=== PATIENT | male | born 1945 | race Caucasian/White ===

== ENCOUNTER 2022-08-26 18:11 | Inpatient (IN) | payer MEDICARE, BC ==
[~2022-08-26] VITALS: Ht 167.6 cm; Wt 68.0 kg
--- NOTE | 2022-08-26 01:12 | NUR ---
RN NOTES PATIENT COMPLAINS OF PAIN SCALE OF 10/10. WAS GIVEN MORPHINE. WILL REASSESS.
--- NOTE | 2022-08-26 02:07 | NUR ---
RN NOTES PATIENT IS SLEEPING EASILY AWAKEN WHEN CALLED BY NAME PATIENT CLAIMS TO BE RELIEVED.
--- NOTE | 2022-08-26 18:30 | NUR ---
Patient c/c abd pain, A/O x 3
--- NOTE | 2022-08-26 18:58 | NUR ---
LAB AT BEDSIDE FOR BLOOD DRAW
[2022-08-26] MEDS ORDERED: FAMOTIDINE/PF INJ 20 MG/2 ML VIAL IV ONE ×3 (19:00→19:45)
[2022-08-26] MEDS ORDERED: ONDANSETRON HCL/PF 4 MG/2 ML VIAL IVP ONE (19:00)
[2022-08-26] MEDS ORDERED: ONDANSETRON HCL/PF 4 MG/2 ML VIAL ONE ×3 (19:00→21:15)
[2022-08-26] MEDS ORDERED: MORPHINE SULFATE INJ 2 MG/ML DISP.SYRIN IV ONE ×2 (19:00→21:00)
[2022-08-26] MEDS ORDERED: IV NS 0.9% 1,000 ML BAG IV ONE (19:00)
[2022-08-26] MEDS ORDERED: MORPHINE SULFATE INJ 2 MG/ML DISP.SYRIN ONE ×2 (19:01→19:44)
[2022-08-26 19:32] LABS: CALCIUM, SERUM 9.9 mg/dL (8.5-10.1); CARBON DIOXIDE 32 mmol/L (21-32); CHLORIDE 101 mmol/L (98-107); CREATININE 1.6 mg/dL (0.6-1.3); GLUCOSE 128 mg/dL (74-106); POTASSIUM 3.8 mmol/L (3.5-5.1); SODIUM SERUM 136 mmol/L (136-145); UREA NITROGEN, BLOOD 28 mg/dL (7-18)
[2022-08-26 19:39] LABS: ALANINE AMINOTRANSFERASE 35 U/L (12-78); ALBUMIN 4.3 g/dL (3.4-5.0); ALKALINE PHOSPHATASE 92 U/L (46-116); ASPARTATE AMINOTRANSFERASE 28 U/L (15-37); BILIRUBIN,DIRECT 0.2 mg/dL (0.0-0.2); BILIRUBIN,TOTAL 0.9 mg/dL (0.2-1.0); LIPASE 197 U/L (73-393); TOTAL PROTEIN, SERUM 7.6 g/dL (6.4-8.2)
--- NOTE | 2022-08-26 19:40 | NUR ---
RIGHT HAND #22G INSERTED
--- NOTE | 2022-08-26 20:00 | NUR ---
MORPHINE 2MG, PEPCID 20MG, ZOFRAN 4MG GIVEN
[2022-08-26 20:18] LABS: BASOPHILS % (AUTO) 0.2 % (0.0-2.0); HEMATOCRIT 47 % (39-51); HEMOGLOBIN 15.7 g/dL (13.5-17.5); LYMPHOCYTES # (AUTO) 0.8 K/uL (0.8-4.8); LYMPHOCYTES % (AUTO) 4.7 % (20.0-44.0); MEAN CORPUSCULAR HGB CONC 34 g/dl (31.0-36.0); MEAN CORPUSCULAR VOLUME 92 fL (80-96); MONOCYTES # (AUTO) 0.7 K/uL (0.1-1.30); MONOCYTES % (AUTO) 4.2 % (2.0-12.0); NEUTROPHILS # (AUTO) 14.3 K/uL (1.8-8.9); NEUTROPHILS % (AUTO) 89.9 % (43.0-81.0); PLATELET COUNT (AUTO) 200 K/uL (150-450); RED BLOOD CELL COUNT(AUTO) 5.09 MIL/uL (4.5-6.0); WHITE BLOOD COUNT (AUTO) 15.9 K/uL (4.3-11.0)
[2022-08-26] MEDS ORDERED: MORPHINE SULFATE INJ 4 MG/ML DISP.SYRIN ONE (21:05)
--- NOTE | 2022-08-26 21:10 | NUR ---
MORPHINE 4MG IV GIVEN
--- NOTE | 2022-08-26 21:20 | NUR ---
ZOFRAN 4MG IV GIVEN
[2022-08-26] MEDS ORDERED: ONDANSETRON HCL/PF 4 MG/2 ML VIAL IV ONE (21:30)
--- NOTE | 2022-08-26 21:50 | NUR ---
REPORT GIVEN TO ARIEL
--- NOTE | 2022-08-26 22:25 | NUR ---
PATIENT TRANSFER TO ROOM 324-1, IN STABLE CONDITION
[2022-08-26 22:35] VITALS: BP 120/71
--- NOTE | 2022-08-26 22:35 | NUR ---
MS RN ADMITTING NOTES RECEIVED PATIENT AWAKE, COOPERATIVE, A/OX4, PATIENT IS BREATHING EVENLY AND UNLABORED ON ROOM AIR, COMPLAINS OF PAIN IN THE ABDOMEN SCALE OF 8/10, PATIENT WAS GIVEN MORPHINE IN ER. PHYSICAL ASSESSMENT WAS DONE, PATIENT HAVE IV ACCESS ON RIGHT WRIST G#22 SALINE LOCK PATENT AND FLUSHING WELL, PATIENT WAS ORIENTED TO THE ROOM AND HOW TO USE THE CALL LIGHT, BELONGINGS ARE ACCOUNTED FOR. SAFETY MEASURES IN PLACE; BED LOCKED IN LOWEST POSITION, SIDE RAIL UP X2, CALL LIGHT AND SIDE TABLE WITHIN PATIENTS REACH
[2022-08-27] MEDS: IV NS 0.9% 1,000 ML IV PRN ×2 (00:35→21:11)
[2022-08-27] MEDS: ENOXAPARIN SODIUM 40 MG/0.4 ML DISP.SYRIN SQ SCH ×2 (00:36→21:41)
[2022-08-27] MEDS: MORPHINE SULFATE INJ 2 MG/ML DISP.SYRIN IV PRN ×5 (01:37→21:41)
[2022-08-27 06:16] LABS: BASOPHILS % (AUTO) 0.2 % (0.0-2.0); EOSINOPHILS % (AUTO) 0.8 % (0.0-6.0); HEMATOCRIT 42 % (39-51); HEMOGLOBIN 14.1 g/dL (13.5-17.5); LYMPHOCYTES # (AUTO) 0.5 K/uL (0.8-4.8); LYMPHOCYTES % (AUTO) 3.1 % (20.0-44.0); MEAN CORPUSCULAR HGB CONC 34 g/dl (31.0-36.0); MEAN CORPUSCULAR VOLUME 92 fL (80-96); MONOCYTES # (AUTO) 0.7 K/uL (0.1-1.30); NEUTROPHILS # (AUTO) 13.4 K/uL (1.8-8.9); NEUTROPHILS % (AUTO) 90.9 % (43.0-81.0); PLATELET COUNT (AUTO) 159 K/uL (150-450); RED BLOOD CELL COUNT(AUTO) 4.53 MIL/uL (4.5-6.0); WHITE BLOOD COUNT (AUTO) 14.7 K/uL (4.3-11.0)
[2022-08-27 06:27] LABS: CHOLESTEROL 98 mg/dL (<200); HDL CHOLESTEROL 53 mg/dL (40-60); LDL 41 mg/dL (0-99); TRIGLYCERIDES 57 mg/dL (30-150)
[2022-08-27 06:31] LABS: CALCIUM, SERUM 8.9 mg/dL (8.5-10.1); CARBON DIOXIDE 32 mmol/L (21-32); CHLORIDE 103 mmol/L (98-107); CREATININE 1.5 mg/dL (0.6-1.3); GLUCOSE 122 mg/dL (74-106); MAGNESIUM 2.7 mg/dL (1.8-2.4); PHOSPHORUS 3.7 mg/dL (2.5-4.9); POTASSIUM 5.2 mmol/L (3.5-5.1); SODIUM SERUM 136 mmol/L (136-145); UREA NITROGEN, BLOOD 29 mg/dL (7-18)
--- NOTE | 2022-08-27 06:43 | NUR ---
RN NOTES PATIENT COMPLAINS OF PAIN WITH A SCALE OF 10/10. PATIENT WAS GIVEN MORPHINE.
--- NOTE | 2022-08-27 06:50 | NUR ---
MS RN CLOSING NOTES PATIENT AWAKE, COOPERATIVE, A/OX4, PATIENT IS BREATHING EVENLY AND UNLABORED ON ROOM AIR, COMPLAINS OF PAIN IN THE ABDOMEN SCALE OF 4/10, PATIENT HAVE IV ACCESS ON RIGHT WRIST G#22 SALINE LOCK PATENT AND FLUSHING WELL, PAIN MEDICATIONS GIVEN ORDERED. SAFETY MEASURES IN PLACE; BED LOCKED IN LOWEST POSITION, SIDE RAIL UP X2, CALL LIGHT AND SIDE TABLE WITHIN PATIENTS REACH. WILL ENDORSE TO NEXT SHIFT FOR CONTINUITY OF CARE.
--- NOTE | 2022-08-27 07:20 | NUR ---
MS RN OPENING NOTES RECEIVED PATIENT AWAKE, COOPERATIVE, A/OX4, PATIENT IS BREATHING EVENLY AND UNLABORED ON ROOM AIR, COMPLAINS OF PAIN AND DISCOMFORT AND WAS JUST GIVEN PAIN MEDICATION OF MORPHINE , PATIENT HAVE IV ACCESS ON RIGHT WRIST G#22 SALINE LOCK PATENT AND FLUSHING WELL, PATIENT WAS ORIENTED TO THE ROOM AND HOW TO USE THE CALL LIGHT, BELONGINGS ARE ACCOUNTED FOR. SAFETY MEASURES IN PLACE; BED LOCKED IN LOWEST POSITION, SIDE RAIL UP X2, CALL LIGHT AND SIDE TABLE WITHIN PATIENTS REACH
[2022-08-27 08:00] VITALS: BP 125/73
[2022-08-27] MEDS ORDERED: PRED5DRO16 LEFTEYE (08:28)
[2022-08-27] MEDS ORDERED: CYCL5TAB PO (08:28)
[2022-08-27] MEDS ORDERED: GABA300C PO (08:28)
[2022-08-27] MEDS ORDERED: KETO5DRO39 LEFTEYE (08:28)
[2022-08-27] MEDS ORDERED: HYDR-3972 PO (08:28)
[2022-08-27] MEDS ORDERED: ATOR10TA PO (08:28)
[2022-08-27] MEDS: PANTOPRAZOLE 40 MG VIAL IV SCH (08:33)
[2022-08-27] MEDS: ONDANSETRON HCL/PF 4 MG/2 ML VIAL IVP PRN ×2 (12:23→17:13)
[2022-08-27] MEDS ORDERED: SODIUM POLYSTYRENE SULF. PWD 15 GM UDC PO ONE (15:00)
[2022-08-27 16:00] VITALS: BP 130/70
[2022-08-27] MEDS ORDERED: SODIUM POLYSTYRENE SULFONATE 15 G/60 ML BOTTLE PO ONE (17:00)
--- NOTE | 2022-08-27 19:41 | NUR ---
MS RN CLOSING NOTES PATIENT AWAKE, COOPERATIVE, A/OX4, PATIENT IS BREATHING EVENLY AND UNLABORED ON ROOM AIR, COMPLAINS OF PAIN AND DISCOMFORT AND MORPHINE GIVEN ORDERED WITH HELP TOGETHER WITH STEPHIE PATIENT C/O OF NAUSEA AND WITH HELP , ALL DUE MEDS GIVEN ORDERED, SEEN BY DR SCHMITT AND ASSESSED AND WITH ORDER TO PUT NGT , INSERTED AND WITH OUTPUT OF COFFEE GROUND EMESIS ON INTERMITTENT SUCTION ON GOING, PATIENT HAVE IV ACCESS ON RIGHT WRIST G#22 WITH NS @75 ML /H , PATIENT WAS ORIENTED TO THE ROOM AND HOW TO USE THE CALL LIGHT . SAFETY MEASURES IN PLACE; BED LOCKED IN LOWEST POSITION, SIDE RAIL UP X2, CALL LIGHT AND SIDE TABLE WITHIN PATIENTS REACH AND ENDORSED TO NEXT SHIFT
--- NOTE | 2022-08-27 19:51 | NUR ---
RN Opening Notes Received pt in bed, asleep, awakens to verbal stimuli. AOx4. ON RA and tolerating well. No SOB noted. No s/sx of respiratory distress noted. IV Access in R arm #22G running NS @ 75 ml/hr. Safety precautions in place: bed in lowest, locked position, siderails upx2, and brakes on. Table and call light within reach. All needs met at this time.
[2022-08-27 20:00] VITALS: BP 137/76
[2022-08-27] MEDS ORDERED: ONDANSETRON HCL/PF 4 MG/2 ML VIAL IVP PRN (22:30)
[2022-08-27] MEDS ORDERED: NA PHOS,M-B/NA PHOS,DI-BA 1 EA ENEMA RC PRN (23:00)
[2022-08-28] MEDS ORDERED: NA PHOS,M-B/NA PHOS,DI-BA 1 EA ENEMA RC PRN (03:30)
[2022-08-28 06:11] LABS: BASOPHILS % (AUTO) 0.1 % (0.0-2.0); EOSINOPHILS % (AUTO) 0.3 % (0.0-6.0); HEMATOCRIT 42 % (39-51); HEMOGLOBIN 13.9 g/dL (13.5-17.5); LYMPHOCYTES # (AUTO) 0.3 K/uL (0.8-4.8); LYMPHOCYTES % (AUTO) 2.4 % (20.0-44.0); MEAN CORPUSCULAR HGB CONC 33 g/dl (31.0-36.0); MEAN CORPUSCULAR VOLUME 93 fL (80-96); MONOCYTES # (AUTO) 0.9 K/uL (0.1-1.30); MONOCYTES % (AUTO) 8.1 % (2.0-12.0); NEUTROPHILS # (AUTO) 9.8 K/uL (1.8-8.9); NEUTROPHILS % (AUTO) 89.1 % (43.0-81.0); PLATELET COUNT (AUTO) 148 K/uL (150-450); RED BLOOD CELL COUNT(AUTO) 4.48 MIL/uL (4.5-6.0); WHITE BLOOD COUNT (AUTO) 11.1 K/uL (4.3-11.0)
[2022-08-28 06:23] LABS: ALANINE AMINOTRANSFERASE 36 U/L (12-78); ALBUMIN 2.8 g/dL (3.4-5.0); ALKALINE PHOSPHATASE 66 U/L (46-116); ASPARTATE AMINOTRANSFERASE 31 U/L (15-37); BILIRUBIN,TOTAL 0.9 mg/dL (0.2-1.0); CALCIUM, SERUM 8.6 mg/dL (8.5-10.1); CARBON DIOXIDE 28 mmol/L (21-32); CHLORIDE 106 mmol/L (98-107); CREATININE 1.5 mg/dL (0.6-1.3); GLUCOSE 123 mg/dL (74-106); MAGNESIUM 2.7 mg/dL (1.8-2.4); PHOSPHORUS 2.8 mg/dL (2.5-4.9); POTASSIUM 4.8 mmol/L (3.5-5.1); SODIUM SERUM 138 mmol/L (136-145); TOTAL PROTEIN, SERUM 6.1 g/dL (6.4-8.2); UREA NITROGEN, BLOOD 33 mg/dL (7-18)
--- NOTE | 2022-08-28 07:20 | NUR ---
MS RN OPENING NOTES RECEIVED PATIENT AWAKE USING BEDSIDE COMMODE , COOPERATIVE, A/OX4, ROOM AIR WITH NO SOB OR DISTRESS NOTED , NO OF PAIN AND DISCOMFORT NOTED , PATIENT HAVE IV ACCESS ON RIGHT WRIST G#22 WITH NS @75 ML /HOUR . ON NGT DRAINING WITH COFFEE GROUND EMESIS WITH 1000 CC . SAFETY MEASURES IN PLACE; BED LOCKED IN LOWEST POSITION, SIDE RAIL UP X2, CALL LIGHT AND SIDE TABLE WITHIN PATIENTS REACH
--- NOTE | 2022-08-28 07:42 | NUR ---
RN Closing Notes Pt in bed, asleep, awakens to verbal stimuli. AOx4. ON RA and tolerating well. No SOB noted. No s/sx of respiratory distress noted. IV Access in R arm #22G running NS @ 75 ml/hr. All orders carried out. All needs met. Pt kept clean and dry. Safety precautions in place: bed in lowest, locked position, siderails upx2, and brakes on. Table and call light within reach. Will endorse to oncoming shift for olaf.
[2022-08-28 08:00] VITALS: BP 132/76
[2022-08-28] MEDS: PANTOPRAZOLE 40 MG VIAL IV SCH (09:42)
--- NOTE | 2022-08-28 12:30 | NUR ---
RN NOTES RECEIVED A CALL FROM BRONSON CADET NP AND WITH ORDER TO SULO MEDROL IV FOR IODINE ALLERGY AND TO GIVE ANOTHER ONE @ 1800 OF BENADRYL AND SOLU MEDROL IV , PATIENT AGREED TO HAVE THAT MEDICATION
[2022-08-28] MEDS ORDERED: methylPREDNISolone SOD SUCC 40 MG/ML VIAL IV ONE ×2 (13:00→18:00)
[2022-08-28 16:09] LABS: BILIRUBIN,URINE NEGATIVE (NEGATIVE); COLOR,URINE YELLOW (YELLOW); LEUKOCYTE ESTERASE ,URINE NEGATIVE (NEGATIVE); NITRITE, URINE NEGATIVE (NEGATIVE); PH,URINE 5.5 (5.0-8.0); PROTEIN,URINE 1+ mg/dl (NEGATIVE); UGLUCOSE NEGATIVE (NEGATIVE); UROBILINOGEN,URINE 0.2 EU/dL (0.2)
[2022-08-28] MEDS: IV NS 0.9% 1,000 ML IV PRN (16:27)
[2022-08-28 16:30] VITALS: BP 117/70
[2022-08-28] MEDS ORDERED: DIATR MEGLU/DIATRIZOATE SODIUM 120 ML BOTTLE (GASTROGRAPHIN) ONE ×2 (17:05→18:34)
[2022-08-28 17:20] LABS: RBC,URINE 0-2 /HPF (0-2)
[2022-08-28 17:21] LABS: BACTERIA,URINE Few /HPF (None Seen); SQUAMOUS EPITHELIAL CELL,UR Few /HPF (None Seen); WBC,URINE NONE SEEN /HPF (0-3)
[2022-08-28] MEDS ORDERED: diphenhydrAMINE HCL 50 MG/ML VIAL IV ONE (18:00)
--- NOTE | 2022-08-28 19:40 | NUR ---
MS RN OPENING NOTE RECEIVED PATIENT AWAKE, WITH , AND DAUGHTER AT BED SIDE. PT A/OX4, ABLE TO VERBALIZE NEEDS. BREATHING EVEN, AND UNLABORED. IV ACCESS TO RIGHT WRIST G#22 SALINE LOCK, IV PATENT AND FLUSHING WELL. PT IS GETTING TEST DONE AT BED SIDE. SAFETY MEASURES IN PLACE; BED LOCKED IN LOWEST POSITION, SIDE RAIL UP X2, CALL LIGHT AND SIDE TABLE WITHIN REACH. WILL CONTINUE TO MONITOR PT.
--- NOTE | 2022-08-28 19:50 | NUR ---
MS RN CLOSING NOTES PATIENT IN BED AWAKE , COOPERATIVE, A/OX4, ROOM AIR WITH NO SOB OR DISTRESS NOTED , NO OF PAIN AND DISCOMFORT NOTED , PATIENT HAVE IV ACCESS ON RIGHT WRIST G#22 WITH NS @75 ML /HOUR . ON NGT DRAINING WITH COFFEE GROUND EMESIS . ALL DUE MEDS GIVEN ORDERED , ABLE TO DO BOWEL MOVEMENT X 1 AND URINALYSIS COLLECTED AND PENDING RESULT , SAFETY MEASURES IN PLACE; BED LOCKED IN LOWEST POSITION, SIDE RAIL UP X2, SMALL BOWEL THRU DONE @ 1900 , ENDORSED TO NEXT SHIFT
[2022-08-28 20:00] VITALS: BP 138/77
--- NOTE | 2022-08-28 22:00 | NUR ---
MS RN NOTE PT HAD SMALL BOWEL SERIAL X-RAYS.
[2022-08-28] MEDS: ENOXAPARIN SODIUM 40 MG/0.4 ML DISP.SYRIN SQ SCH (22:22)
[2022-08-29 06:29] LABS: HEMATOCRIT 35 % (39-51); HEMOGLOBIN 11.9 g/dL (13.5-17.5); LYMPHOCYTES # (AUTO) 0.3 K/uL (0.8-4.8); LYMPHOCYTES % (AUTO) 3.5 % (20.0-44.0); MEAN CORPUSCULAR HGB CONC 34 g/dl (31.0-36.0); MEAN CORPUSCULAR VOLUME 93 fL (80-96); MONOCYTES # (AUTO) 0.9 K/uL (0.1-1.30); MONOCYTES % (AUTO) 9.7 % (2.0-12.0); NEUTROPHILS # (AUTO) 7.9 K/uL (1.8-8.9); NEUTROPHILS % (AUTO) 86.8 % (43.0-81.0); PLATELET COUNT (AUTO) 138 K/uL (150-450); RED BLOOD CELL COUNT(AUTO) 3.75 MIL/uL (4.5-6.0); WHITE BLOOD COUNT (AUTO) 9.1 K/uL (4.3-11.0)
[2022-08-29 06:55] LABS: CALCIUM, SERUM 8.7 mg/dL (8.5-10.1); CARBON DIOXIDE 30 mmol/L (21-32); CHLORIDE 110 mmol/L (98-107); CREATININE 1.4 mg/dL (0.6-1.3); GLUCOSE 124 mg/dL (74-106); MAGNESIUM 2.5 mg/dL (1.8-2.4); PHOSPHORUS 2.5 mg/dL (2.5-4.9); POTASSIUM 4.7 mmol/L (3.5-5.1); SODIUM SERUM 143 mmol/L (136-145); UREA NITROGEN, BLOOD 41 mg/dL (7-18)
--- NOTE | 2022-08-29 06:58 | NUR ---
MS RN OPENING NOTE LEFT PATIENT IN BED, AWAKE. PT A/OX4, ABLE TO VERBALIZE NEEDS. BREATHING EVEN, AND UNLABORED. IV ACCESS TO RIGHT WRIST G#22 SALINE LOCK, IV PATENT AND FLUSHING WELL. PT IS REFUSING IV FLUID. HE STATES THAT HE WOULD LIKE TO TALK TO MD REGARDING REMOVAL OF NG TUBE.. PT HAD SMALL BOWEL SERIAL X-RAYS. SAFETY MEASURES IN PLACE; BED LOCKED IN LOWEST POSITION, SIDE RAIL UP X2, CALL LIGHT AND SIDE TABLE WITHIN REACH. WILL ENDORSE PT TO MORNING SHIFT NURSE FOR SHON.
--- NOTE | 2022-08-29 07:07 | NUR ---
MS RN OPENING NOTES RECEIVED PATIENT AWAKE IN BED, A/Ox4 ABLE TO MAKE NEEDS KNOWN. ON ROOM AIR, NO S/S OF RESPIRATORY DISTRESS. IV ACCESS R ARM #22G, PATIENT CURRENTLY REFUSING IV FLUIDS. INTACT AND PATENT. PATIENT HAS NG-TUBE, CURRENTLY LOCKED, PENDING MD ORDER TO CONTINUE SUCTIONING. NO C/O OF PAIN OR DISCOMFORT. PATIENT AMBULATORY, HAS BATHROOM PRIVILEGE. SKIN INTACT. SAFETY MEASURES IN PLACE: BED LOCKED AND IN LOWEST POSITION, HOB ELEVATED, CALL LIGHT WITHIN REACH, SIDE RAILS UPx2. WILL CONTINUE TO MONITOR.
[2022-08-29 08:00] VITALS: BP 143/81
[2022-08-29] MEDS ORDERED: IV D5/0.45 NACL 1,000 ML IV PRN (09:00)
[2022-08-29] MEDS: PANTOPRAZOLE 40 MG VIAL IV SCH (09:00)
--- NOTE | 2022-08-29 09:39 | NUR ---
RN NOTES PATIENT REFUSED MORNING MEDICATION, SAYING HE DOESN'T NEED IT. WISHES TO HAVE NG-TUBE REMOVED AND TALK TO THE DOCTOR. WILL CONTINUE TO MONITOR AND EDUCATE NEEDED
--- NOTE | 2022-08-29 12:51 | NUR ---
RN NOTES REMOVED NGT, PATIENT TOLERATED WELL. ORDERED CLEAR LIQUID DIET, PATIENT EATING, FAMILY AT BEDSIDE. WILL CONTINUE TO MONITOR.
[2022-08-29 16:00] VITALS: BP 146/80
--- NOTE | 2022-08-29 18:41 | NUR ---
MS RN CLOSING NOTES PATIENT AWAKE IN BED, A/Ox4 ABLE TO MAKE NEEDS KNOWN. STABLE ON ROOM AIR, NO S/S OF RESPIRATORY DISTRESS. IV ACCESS R ARM #22G, PATIENT CURRENTLY REFUSING IV FLUIDS. INTACT AND PATENT. NO C/O OF PAIN OR DISCOMFORT. PATIENT AMBULATORY, HAS BATHROOM PRIVILEGE. SKIN INTACT. SAFETY MEASURES MAINTAINED: BED LOCKED AND IN LOWEST POSITION, HOB ELEVATED, CALL LIGHT WITHIN REACH, SIDE RAILS UPx2. WILL ENDORSE TO NEXT SHIFT ANY SHON.
--- NOTE | 2022-08-29 19:49 | NUR ---
MS RN OPENING NOTES: RECEIVED PATIENT AWAKE IN BED, BE DIN LOW POSITION CALL LIGHTS WITHIN REACH, NO COMPLAIN OF PAIN AND DISCOMFORT AT THIS TIME, ON ROOM AIR SATURATING WELL, NO SOB WAS OBSERVED, PATIENT IS A/OX4 ABLE TO MAKE NEEDS KNOWN, AMBULATORY, REMIND TO USE THE CALL LIGHTS WHEN NEEDED ASSISTANCE, IV LINE AT RIGHT ARM #22 WITH D5 1/2 NSS@100ML/HR INFUSING WELL, PATIENT KEPT CLEAN AND DRY ALL NEEDS MET WILL CONTINUE TO MONITOR.
[2022-08-29 20:00] VITALS: BP 136/81
[2022-08-29] MEDS: ACETAMINOPHEN 325 MG TABLET PO PRN (21:16)
[2022-08-29] MEDS: ENOXAPARIN SODIUM 40 MG/0.4 ML DISP.SYRIN SQ SCH (22:00)
--- NOTE | 2022-08-29 22:24 | NUR ---
RN NOTES: PATIENT REFUSED LOVENOX 40 MG HS , EXPLAIN PURPOSE, RISK AND BENEFITS PER PATIENT SAID " I THINK IM GONNA PASS IT FOR NOW".
[2022-08-30 05:55] LABS: BASOPHILS % (AUTO) 0.1 % (0.0-2.0); EOSINOPHILS % (AUTO) 3.3 % (0.0-6.0); HEMATOCRIT 33 % (39-51); HEMOGLOBIN 11.3 g/dL (13.5-17.5); LYMPHOCYTES # (AUTO) 0.9 K/uL (0.8-4.8); LYMPHOCYTES % (AUTO) 11.3 % (20.0-44.0); MEAN CORPUSCULAR HGB CONC 34 g/dl (31.0-36.0); MEAN CORPUSCULAR VOLUME 92 fL (80-96); MONOCYTES # (AUTO) 0.8 K/uL (0.1-1.30); MONOCYTES % (AUTO) 10.8 % (2.0-12.0); NEUTROPHILS # (AUTO) 5.7 K/uL (1.8-8.9); NEUTROPHILS % (AUTO) 74.5 % (43.0-81.0); PLATELET COUNT (AUTO) 130 K/uL (150-450); WHITE BLOOD COUNT (AUTO) 7.7 K/uL (4.3-11.0)
[2022-08-30 06:04] LABS: CALCIUM, SERUM 8.5 mg/dL (8.5-10.1); CARBON DIOXIDE 31 mmol/L (21-32); CHLORIDE 107 mmol/L (98-107); CREATININE 1.4 mg/dL (0.6-1.3); GLUCOSE 94 mg/dL (74-106); MAGNESIUM 2.1 mg/dL (1.8-2.4); PHOSPHORUS 3.2 mg/dL (2.5-4.9); POTASSIUM 4.2 mmol/L (3.5-5.1); SODIUM SERUM 142 mmol/L (136-145); UREA NITROGEN, BLOOD 34 mg/dL (7-18)
--- NOTE | 2022-08-30 06:17 | NUR ---
MS RN CLOSING NOTES: PATIENT SLEEP IN BED COMFORTABLY, AROUSABLE TO VERBAL STIMULI, BED IN LOW POSITION CALL LIGHTS WITHIN REACH, NO COMPLAIN OF PAIN AND DISCOMFORT AT THIS TIME, PATIENT OIS A/OX4 ABLE TO TO MAKE NEEDS KNOWN, AMBULATORY WITH SUPERVISION,IV LINE AT RIGHT ARM#22 WITH D5 1/2 NSS@ 100ML/HR, PATIENT REFUSED IV FLUID, PATIENT KEPT CLEAN AND DRY ALL NEEDS MET ENDORSE TO INCOMING SHIFT.
--- NOTE | 2022-08-30 07:16 | NUR ---
MS RN OPENING NOTES RECEIVED PATIENT AWAKE IN BED IN NO ACUTE SIGNS OF DISTRESS. A/O x4. ABLE TO MAKE NEEDS KNOWN, DENIES PAIN OR ANY DISCOMFORTS AT THIS TIME. ON ROOM AIR, TOLERATING WELL, BREATHING EVEN AND UNLABORED. IV ACCESS ON RFA #22G INTACT AND PATENT, PATIENT REFUSES IV FLUIDS. SAFETY MEASURES IN PLACE: BED LOCKED AND IN LOWEST POSITION, CALL LIGHT WITHIN REACH AND SIDE RAILS UP X2. WILL CONTINUE TO MONITOR PT ACCORDINGLY.
[2022-08-30] MEDS: ACETAMINOPHEN 325 MG TABLET PO PRN (08:22)
--- NOTE | 2022-08-30 08:24 | NUR ---
RN NOTES PT C/O ACHING POSTERIOR NECK PAIN, PRN TYLENOL 650MG PO GIVEN AT 0822. WILL CONTINUE TO MONITOR PT.
[2022-08-30 08:36] VITALS: BP 145/79
[2022-08-30] MEDS: PANTOPRAZOLE 40 MG VIAL IV SCH (08:44)
--- NOTE | 2022-08-30 11:00 | NUR ---
RN NOTES PATIENT JUST COMPLETED PHYSICAL THERAPY EVALUATION. PER PHYSICAL THERAPIST, PT AMBULATES STEADY AND INDEPENDENTLY.
--- NOTE | 2022-08-30 12:45 | NUR ---
RN DISCHARGED NOTES PT DISCHARGED HOME IN STABLE CONDITION. A/O X4. ABLE TO MAKE NEEDS KNOWN. ON RA, TOLERATING WELL, NO SOB NOTED. ALL BELONGINGS ACCOUNTED FOR AND PT SIGNED BELONGINGS LIST. IV ACCESS ON RFA G#22 REMOVED WITH NO ACTIVE BLEEDING NOTED, DRY DRESSING APPLIED AT SITE. HEALTH TEACHINGS/DISCHARGE INSTRUCTIONS GIVEN TO PT AND , BOTH VERBALIZED UNDERSTANDING. NAME ARMBAND REMOVED. PT LEFT UNIT @ 1240 VIA WHEELCHAIR ACCOMPANIED BY ME, DAUGHTER AND PT'S KATHLEEN.
[2022-08-31] MEDS ORDERED: PANTOPRAZOLE 40 MG/PACK PACK PO SCH (09:00)
== END 2022-08-30 12:45 | disposition home or self-care (01) | DRG 388 ==
LOC: ER 18:13 → MED 21:38
PROVIDERS: ADMIT Nurse Practitioner Acute Care; ATTEND Nurse Practitioner Acute Care
DX: K56.600 Partial intestinal obstruction, unspecified as to cause (principal); N17.0 Acute kidney failure with tubular necrosis; F11.20 Opioid dependence, uncomplicated; Z85.46 Personal history of malignant neoplasm of prostate; Z20.822 Contact with and (suspected) exposure to COVID-19; G89.29 Other chronic pain; Z88.0 Allergy status to penicillin; Z91.041 Radiographic dye allergy status; N40.0 Benign prostatic hyperplasia without lower urinary tract symptoms; Z79.899 Other long term (current) drug therapy; E86.1 Hypovolemia; E87.5 Hyperkalemia; E78.5 Hyperlipidemia, unspecified; M19.90 Unspecified osteoarthritis, unspecified site; M47.892 Other spondylosis, cervical region
CPT/HCPCS: 36415; 71045-TC; 74018; 74250-TC; 76770-TC; 80048-TC; 80053-TC; 80061-TC; 80076-TC; 81001; 83690-TC; 83735-TC; 84100-TC; 84484-TC; 85025-TC; 97116-TC; 97530-TC; A4223; C9113; C9803; G0378; J1200; J1650; J2270; J2405; J2920; J3490; J7030; Q9963